=== PATIENT | male | born 1995 | race African-American/Black ===

== ENCOUNTER 2024-09-28 08:28 | Emergency (ER) | payer OTHER ==
[~2024-09-28] VITALS: Ht 175.3 cm; Wt 107.0 kg
[2024-09-28 08:35] VITALS: O2SAT 96
[2024-09-28] MEDS ORDERED: CELE100C MT (09:25)
[2024-09-28 09:40] VITALS: BP 138/97; PULSE 59; RESP 16; TEMP 37.00296; O2SAT 96
== END 2024-09-28 09:50 | disposition home or self-care (01) ==
LOC: ER 08:28
DX: M24.412 Recurrent dislocation, left shoulder (principal); X58.XXXA Exposure to other specified factors, initial encounter; Y93.89 Activity, other specified; Y92.89 Other specified places as the place of occurrence of the external cause; Y99.8 Other external cause status
CPT/HCPCS: 73030; 99283; A4565